=== PATIENT | male | born 1940 | race Caucasian/White ===

== ENCOUNTER → 2017-02-08 | Outpatient (CLI) | payer MEDICARE, BC ==
[~2017-02-08] MED LIST: AMIODARONE HCL400 MG PO; ASPIRIN81 M2 PO; AZULFIDINE ENT500 MG PO; AZULFIDINE PO; CLOPIDOGREL75 MG PO; CORDARONE200 M1 PO; COUMADIN2.5 MG PO; HYDRALAZINE HCL25 MG PO; HYDROCHLOROTHIA25 MG PO; LIPITOR40 MG PO; LISINOPRIL30 MG PO; METOPROLOL SUCC25 MG PO; METOPROLOL TAR25 MG PO; NORVASC10 MG PO; PERCOCET5/325 PO; PLAQUENIL200 MG PO; PRADAXA150 MG PO; ZESTRIL30 MG PO
[2017-02-08 10:34] LABS: ALBUMIN SERUM 3.6 g/dL (3.5-5.0); BILIRUBIN,TOTAL 1.1 mg/dL (0.2-2.0); BUN/CREATININE RATIO 28.75; CALCIUM SERUM 9.4 mg/dL (8.4-10.2); CREATININE SERUM 0.8 mg/dL (0.6-1.4); GLOM FILT RATE Estimated 85.6 mL/min (>60); POTASSIUM 3.1 mmol/L (3.5-5.1); PROTEIN TOTAL SERUM 6.6 g/dL (6.0-8.3)
== END | disposition home or self-care (01) ==
LOC: CLAB 08:41
PROVIDERS: Internal Medicine Cardiovascular Disease
DX: I25.10 Atherosclerotic heart disease of native coronary artery without angina pectoris (principal); E78.00 Pure hypercholesterolemia, unspecified
CPT/HCPCS: 36415; 80053; 80061